=== PATIENT | male | born 1980 | race Caucasian/White ===

== ENCOUNTER 2016-08-02 20:55 | Inpatient (IN) | payer MEDICAID ==
[~2016-08-02] VITALS: Ht 170.2 cm; Wt 125.0 kg
[2016-08-02] MEDS ORDERED: hydrALAzine 20 MG INJ IV ONE (23:30)
[2016-08-02 23:52] LABS: ADD SCAN DIFF NO
[2016-08-02 23:54] LABS: BASOPHIL # 0.1 10^3/ul (0.0-0.1); BASOPHILS % 0.7 % (0.0-2.0); EOSINOPHILS # 0.4 10^3/ul (0.0-0.5); EOSINOPHILS % 2.7 % (0.0-7.0); HEMATOCRIT 45.3 % (42.0-52.0); HEMOGLOBIN 15.3 g/dl (14.0-18.0); LYMPHOCYTES # 2.3 10^3/ul (0.8-2.9); MEAN CORPUSCULAR HEMOGLOBIN 28.8 pg (29.0-33.0); MEAN CORPUSCULAR HGB CONC 33.8 g/dl (32.0-37.0); MEAN CORPUSCULAR VOLUME 85.3 fl (82.0-101.0); MEAN PLATELET VOLUME 10.3 fl (7.4-10.4); MONOCYTE # 0.9 10^3/ul (0.3-0.9); MONOCYTES % 6.4 % (0.0-11.0); NEUTROPHILS % 72.6 % (39.0-77.0); PLATELET COUNT 351 10^3/UL (140-415); RED BLOOD COUNT 5.31 10^6/ul (4.70-6.10); RED CELL DISTRIBUTION WIDTH 12.5 % (11.5-14.5); WHITE BLOOD COUNT 13.8 10^3/ul (4.8-10.8)
--- NOTE | 2016-08-02 23:59 | RADRPT ---
PROCEDURE: XR Chest. CLINICAL INDICATION: Chest pain. TECHNIQUE: Single frontal view of the chest. COMPARISON: Chest dated 10/03/2013. FINDINGS: Cardiac silhouette and pulmonary vascular markings are accentuated by portable technique and patient body habitus. The cardiomediastinal silhouette is within normal limits. The lungs are clear. No signs of pleural f luid or pneumothorax are seen. The osseous structures and soft tissues are unremarkable. IMPRESSION: No evidence for active cardiopulmonary disease. RPTAT: [facility] Physician Marika Date Time Electronically viewed and signed by Physician Marika on 08/02/2016 23:59 RS/
[2016-08-03] VITALS (15 sets, daily range): BP systolic 143–192; BP diastolic 80–110; PULSE 76–108; RESP 19–20; TEMP 98.2; Ht 170.2 cm; Wt 125.0 kg
[2016-08-03 00:09] LABS: INR 0.91; PROTIME 12.2 Sec (12.2-14.2)
[2016-08-03 00:10] LABS: PARTIAL THROMBOPLASTIN TIME 27.2 Sec (25.0-35.0)
[2016-08-03 00:18] LABS: ALANINE AMINOTRANSFERASE 129 IU/L (13-69); ALBUMIN 4.9 g/dl (3.3-4.9); ALBUMIN/GLOBULIN RATIO 1.36; ALKALINE PHOSPHATASE 53 IU/L (42-121); ANION GAP 14 (8-16); ASPARTATE AMINO TRANSFERASE 71 IU/L (15-46); BILIRUBIN,INDIRECT 0.3 mg/dl (0-1.1); BILIRUBIN,TOTAL 0.3 mg/dl (0.2-1.3); BLOOD UREA NITROGEN 13 mg/dl (7-20); CALCIUM 10.1 mg/dl (8.4-10.2); CARBON DIOXIDE 28 mmol/L (21-31); CHLORIDE 103 mmol/L (97-110); CREATININE 1.07 mg/dl (0.61-1.24); GLUCOSE 105 mg/dl (70-220); POTASSIUM 3.2 mmol/L (3.5-5.1); SODIUM 142 mmol/L (135-144); TOTAL PROTEIN 8.5 g/dl (6.1-8.1)
[2016-08-03 00:30] LABS: B-TYPE NATRIURETIC PEPTIDE 117 PG/ML (0-125)
[2016-08-03 00:39] LABS: TROPONIN-I < 0.012 ng/ml (0.00-0.12)
[2016-08-03] MEDS ORDERED: NITROGLYCERIN 2% 1 GM OINT PKT TD ONE (01:00)
[2016-08-03 03:19] LABS: ADD UMIC YES; UR ASCORBIC ACID NEGATIVE (NEGATIVE); UR BILIRUBIN (Dip) NEGATIVE (NEGATIVE); UR BLOOD (Dip) NEGATIVE (NEGATIVE); UR CLARITY CLEAR (CLEAR); UR COLOR STRAW (YELLOW); UR GLUCOSE (Dip) NEGATIVE (NEGATIVE); UR KETONES (Dip) NEGATIVE (NEGATIVE); UR LEUKOCYTE ESTERASE (Dip) NEGATIVE Leu/ul (NEGATIVE); UR NITRITE (Dip) NEGATIVE (NEGATIVE); UR RBC 1 /HPF (0-5); UR SPECIFIC GRAVITY (Dip) 1.009 (1.003-1.030); UR TOTAL PROTEIN (Dip) 1+ mg/dl (NEGATIVE); UR UROBILINOGEN (Dip) NEGATIVE (NEGATIVE)
[2016-08-03] MEDS ORDERED: SOD CHLORIDE 0.9% 1,000 ML IV SCH (03:57)
[2016-08-03] MEDS ORDERED: ONDANSETRON 4 MG INJ IV PRN (04:00)
[2016-08-03] MEDS ORDERED: NACL 0.9% 3 ML SYG IV SCH (04:00)
[2016-08-03] MEDS ORDERED: BISACODYL (EC) 5 MG TAB PO PRN (04:00)
[2016-08-03] MEDS ORDERED: AZITHROMYCIN 250 MG TAB PO ONE (04:00)
[2016-08-03] MEDS ORDERED: DOCUSATE SODIUM 100 MG CAP PO PRN (04:00)
[2016-08-03] MEDS ORDERED: ACETAMINOPHEN 325 MG TAB PO PRN (04:00)
[2016-08-03] MEDS ORDERED: LORAZEPAM 1 MG TAB PO PRN (04:30)
[2016-08-03] MEDS ORDERED: PANTOPRAZOLE 40 MG INJ IV SCH (06:00)
--- NOTE | 2016-08-03 07:15 | HP ---
Date/Time of Note Date/Time of Note DATE: 08/03/16 TIME: 07:00 Assessment/Plan VTE Prophylaxis VTE Prophylaxis Intervention: LMWH Lines/Catheters IV [facility] Peripheral IV Assessment/Plan Chief Complaint/Hosp Course This is a 35-year-old male being admitted to telemetry floor for: #1 chest pain: Rule out ACS patient has risk factor for hypertension likely uncontrolled as his blood pressure on admission was initially in the 200s. At the current time will trend troponins 3 first set was negative. Will order an echocardiogram. Will consult cardiology. Keep the patient n.p.o. EKG: #2 leukocytosis: Patient presented with a white blood cell count of 13 patient also had a low-grade temperature of approximately 99.9. Patient also has had symptoms of coughing. At the current time we will treat the patient for possible upper respiratory infection versus pneumonia. Will start the patient on azithromycin. Continue to monitor for fevers. #3 Uncontrolled hypertension: Patient is currently not on any outpatient blood pressure medications will start patient currently on Norvasc 10 mg daily. Continue to monitor and add additional medications as indicated. #4 history of alcohol abuse: Patient states that he drinks 6 beers daily. Will put patient on banana bag. Will order vitamin B12 and folate. LFTs are elevated will order right upper quadrant ultrasound. #5DVT and GI prophylaxis: Lovenox, Protonix Further treatment strategy of improvement as per the clinical course Problems: HPI/ROS Admit Date/Time Admit Date/Time Aug 03, 2016 at 01:09 Hx of Present Illness Chief complaint: Chest pressure 3 days This is a 35-year-old male who presents to the ER with chest pressure 3 days. Patient states that he has had chest pressure 3 days on the left side which is coming and going. He states it feels tight. Nonradiating. It gets relieved on its own. It can occur on activity and at rest. Patient also states that he has nausea. He also states that he has been having a cough during this time as well and he states that he has been around sick contacts such as his and his child who both were sick with upper respiratory infection requiring antibiotics. Denies any diaphoresis or lower extremity edema. Allergies: NKDA Medications: See SAVITA ROS Const: As per HPI Eyes : No pain discharge or redness or change in visual acuity ENT: No pain, sore throat, congestion, congestion, dysphagia or discharge Respiratory: As per HPI Cardiovascular: As per H GI : no change in appetite, abdominal pain, nausea, vomiting, diarrhea, constipation, or change in the color his stool Genitourinary: No dysuria, hematuria, flank pain , discharge or CVA tenderness Musculoskeletal: Per HPI Skin: No rash, bruising or hives Neuro: No headache, dizziness, syncope, seizure, focal weakness Endocrine: No polyuria, polydipsia, temperature intolerance Psych: No hallucination, depression, anxiety or suicidal ideation PMH/Family/Social Past Medical History Hypertension Past Surgical History Past Surgical Hx: appendectomy Family History Significant Family History: no pertinent family hx Social History Alcohol Use: heavy (6 beers a day) Smoking Status: Never smoker Drug Use: none Exam/Review of Systems Vital Signs Vitals Vital Signs Date Time Temp Pulse Resp B/P Pulse Ox O2 Delivery O2 Flow Rate FiO2 08/03/16 04:24 98.8 95 19 174/95 98 08/03/16 02:12 Room Air Exam Exam General: Patient is a well-developed male who is laying in bed in no acute distress HEENT: Atraumatic, normocephalic. The pupils are equal, round and reactive. Extraocular motor are intact Neck: Supple with full range of motion. No rigidity or meningismus Chest: Nontender Lungs: Coarse breath sounds, no wheezing no rales Heart: Normal S1-S2, Regular rhythm and rate. No murmur, S3, or S4 Abdomen: Soft , nontender, nondistended , bowel sounds are present. No guarding no rebound tenderness , No masses or organomegaly. No costovertebral temporal angle mass Extremities: Normal to inspection, no edema no cyanosis Neurologic: Normal mental status, speech normal, cranial nerves II through XII are intact, motor and sensory are intact, no focal weakness Labs Result Diagram: 08/02/16 2340 08/02/16 2340 Medications Medications Current Medications Sodium Chloride (NS) 1,000 ml @ 80 mls/hr [id number] IV Last administered on 08/03t 04:30; Admin Dose 80 MLS/HR; Start 08/03/16 at 03:57 Ondansetron HCl (Zofran Inj) 4 mg Q6H PRN IV NAUSEA AND/OR VOMITING; Start at 04:00 Acetaminophen (Tylenol Tab) 650 mg Q6H PRN PO PAIN LEVEL 1-3 OR FEVER Last administered on 08/03/16 04:29; Admin Dose 650 MG; Start 08/03/16 at 04:00 Docusate Sodium (Colace) 100 mg Q12H PRN PO CONSTIPATION; Start 08/03/16 at 04: 00 Bisacodyl (Dulcolax) 5 mg DAILY PRN PO CONSTIPATION; Start 08/03/16 at 04:00 Pantoprazole (Protonix Iv) 40 mg DAILY@06 IV Last administered on 08/03/16 05: 56; Admin Dose 40 MG; Start 08/03/16 at 06:00 Enoxaparin Sodium (Lovenox) 40 mg DAILY SC ; Start 08/03/16 at 09:00 Azithromycin 250 mg 250 mg DAILY PO ; Start 08/04/16 at 09:00; Stop 08/08/16 at 08:59 Multivitamins/ Thiamine HCl/ Folic Acid/Sodium Chloride (Mvi Adult/ Vitamin B1/ Folic Acid/NS) 1,011.2 ml @ 125 mls/ hr DAILY@09 IVPB ; Start 08/03/16 at 09:00 Lorazepam (Ativan) 1 mg Q6H PRN PO ANXIETY; Start 08/03/16 at 04:30 PAM CORONEL Aug 03, 2016 07:10
--- NOTE | 2016-08-03 08:42 | RADRPT ---
PROCEDURE: US Abdomen (right upper quadrant). CLINICAL INDICATION: Elevated liver function tests. Alcohol abuse. TECHNIQUE: Multiple real-time longitudinal and transverse images of the right upper quadrant of th e abdomen were acquired utilizing a curved array transducer. Images were reviewed on a high-resoluti on PACS workstation. COMPARISON: None FINDINGS: The liver is enlarged at 23.1 cm with a coarsened echotexture consistent with steatosis. without foc al mass or intrahepatic biliary dilatation. There is normal hepatopedal flow within the main portal vein. The gallbladder is well displayed without filling defects or wall thickening. The common bi le duct measures 4.0 mm in maximal dimension. The visualized portions of the pancreas are unremarka ble with obscuration of the tail of the pancreas. No free fluid is identified. The right kidney measures 12.3 cm in length. There is normal echogenicity within the right kidney. There is no perinephric fluid collection. No hydronephrosis, mass, or calculus is seen. IMPRESSION: 1. Hepatomegaly with a coarsened echotexture throughout suggesting diffuse steatosis. 2. At the gallbladder and biliary tree appear unremarkable. RPTAT: [facility] Physician Aren Date Time Electronically viewed and signed by Physician Aren on 08/03/2016 08:41 ITZ/
[2016-08-03 08:50] LABS: TROPONIN-I 0.015 ng/ml (0.00-0.12)
[2016-08-03 09:00] LABS: CK-MB 0.88 ng/ml (0.0-2.4)
[2016-08-03] MEDS ORDERED: MULTIVITAMINS 10 ML, THIAMINE 100 MG, FOLIC ACID 1 MG in SOD CHLORIDE 0.9% 1,000 ML IVPB SCH (09:00)
[2016-08-03] MEDS: ENOXAPARIN 40 MG/0.4 ML SYG SC SCH (09:55)
[2016-08-03] MEDS: AMLODIPINE 10 MG TAB PO SCH (10:31)
[2016-08-03 10:41] LABS: TROPONIN-I 0.014 ng/ml (0.00-0.12)
[2016-08-03 10:44] LABS: CK-MB 0.75 ng/ml (0.0-2.4)
[2016-08-03] MEDS ORDERED: POTASSIUM CHLORIDE (SR) 20 MEQ TAB PO STA (10:53)
--- NOTE | 2016-08-03 10:57 | PN ---
Date/Time of Note Date/Time of Note DATE: 08/03/16 TIME: 10:53 Assessment/Plan VTE Prophylaxis VTE Prophylaxis Intervention: SCD's Lines/Catheters IV Catheter Type (from Nrsg): Peripheral IV Assessment/Plan Assessment/Plan 35 yo M with HTN, obesity admitted for chest pain in setting of severely elevated BP. Suspect htn urgency 2/2 uncontrolled HTN #HTN urgency: start scheduled ccb, add dieretic if BP not controlled needs PCP f/u had long language line facilitated conversation with pt this AM abt importance of adherence to BP med regimen and potential for deleterious consequences of uncontrolled BP #chest pain: suspect 2/2 above check TTE, complete ACS r/o #transaminitis: liver US with CROOK check HepC Ab RD consult check a1c given obesity prophx: LMWH dischange pending improved BP control Subjective 24 Hr Interval Summary Free Text/Dictation Language line used to facilitate communication Pt feels ok this morning, no more chest pain. Of note, pt states he was on high blood pressure medicine previously but hasn't taken anything for 6 years because he felt fine. Exam/Review of Systems Vital Signs Vitals Vital Signs Date Time Temp Pulse Resp B/P Pulse Ox O2 Delivery O2 Flow Rate FiO2 08/03/16 08:12 89 08/03/16 08:00 98.7 20 143/82 98 08/03/16 02:12 Room Air Exam +acanthosis nigrans on post neck nad no mrg lungs clear abd soft, obese no rashes Results Result Diagram: 08/02/16 2340 08/02/16 2340 Results 24 hrs Laboratory Tests Test 08/02/16 23:40 08/03/16 02:30 08/03/16 07:15 08/03/16 09:42 White Blood Count 13.8 H Red Blood Count 5.31 Hemoglobin 15.3 Hematocrit 45.3 Mean Corpuscular Volume 85.3 Mean Corpuscular Hemoglobin 28.8 L Mean Corpuscular Hemoglobin Concent 33.8 Red Cell Distribution Width 12.5 Platelet Count 351 Mean Platelet Volume 10.3 Neutrophils % 72.6 Lymphocytes % 17.0 Monocytes % 6.4 Eosinophils % 2.7 Basophils % 0.7 Nucleated Red Blood Cells % 0.0 Neutrophils # 10.0 H Lymphocytes # 2.3 Monocytes # 0.9 Eosinophils # 0.4 Basophils # 0.1 Nucleated Red Blood Cells # 0.0 Prothrombin Time 12.2 Prothrombin Time Ratio 1.0 INR International Normalized Ratio 0.91 Activated Partial Thromboplast Time 27.2 Sodium Level 142 Potassium Level 3.2 L Chloride Level 103 Carbon Dioxide Level 28 Anion Gap 14 Blood Urea Nitrogen 13 Creatinine 1.07 Glucose Level 105 Calcium Level 10.1 Total Bilirubin 0.3 Direct Bilirubin 0.00 Indirect Bilirubin 0.3 Aspartate Amino Transf (AST/SGOT) 71 H Alanine Aminotransferase (ALT/SGPT) 129 H Alkaline Phosphatase 53 Troponin I < 0.012 0.015 0.014 B-Type Natriuretic Peptide 117 Total Protein 8.5 H Albumin 4.9 Globulin 3.60 H Albumin/Globulin Ratio 1.36 Urine Color STRAW Urine Clarity CLEAR Urine pH 7.0 Urine Specific [place] 1.009 Urine Ketones NEGATIVE Urine Nitrite NEGATIVE Urine Bilirubin NEGATIVE Urine Urobilinogen NEGATIVE Urine Leukocyte Esterase NEGATIVE Urine Microscopic RBC 1 Urine Microscopic WBC 0 Urine Hemoglobin NEGATIVE Urine Glucose NEGATIVE Urine Total Protein 1+ H Creatine Kinase 139 130 Creatine Kinase Index 0.6 0.6 Creatinine Kinase MB (Mass) 0.88 0.75 Medications Medications Current Medications Ondansetron HCl (Zofran Inj) 4 mg Q6H PRN IV NAUSEA AND/OR VOMITING; Start at 04:00 Acetaminophen (Tylenol Tab) 650 mg Q6H PRN PO PAIN LEVEL 1-3 OR FEVER Last administered on 08/03/16 04:29; Admin Dose 650 MG; Start 08/03/16 at 04:00 Docusate Sodium (Colace) 100 mg Q12H PRN PO CONSTIPATION; Start 08/03/16 at 04: 00 Bisacodyl (Dulcolax) 5 mg DAILY PRN PO CONSTIPATION; Start 08/03/16 at 04:00 Enoxaparin Sodium (Lovenox) 40 mg DAILY SC Last administered on 08/03/16 09:55 ; Admin Dose 40 MG; Start 08/03/16 at 09:00 Lorazepam (Ativan) 1 mg Q6H PRN PO ANXIETY; Start 08/03/16 at 04:30 Amlodipine Besylate (Norvasc) 10 mg DAILY PO Last administered on 08/03/16 10: 31; Admin Dose 10 MG; Start 08/03/16 at 09:00 Procedures Procedures liver US with fatty infiltration SUELLEN JUAREZ MD Aug 03, 2016 10:57
[2016-08-03 11:17] LABS: CHOL/HDL RATIO 4.7 RATIO
[2016-08-03 11:33] LABS: FOLATE 12.4 ng/ml (2.8-20.0)
[2016-08-03] MEDS ORDERED: HYDROCHLOROTHIAZIDE 25 MG TAB PO ONE (15:00)
--- NOTE | 2016-08-03 16:54 | CONS ---
Date/Time of Note Date/Time of Note DATE: 08/03/16 TIME: 16:47 Assessment/Plan Assessment/Plan Chief Complaint/Hosp Course IMP: 1.Chest pain-assesss for ACS 2.HYpertension-uncontrolled hypertensive urgency/emergency 3.HL 4.Increased LFT's Recc: -Tele -complete sima -Continue norvasc/HCTZ and add ACEI to improve -Check echo -Follow LFT's and consider abdominal imaging Problems: Consultation Date/Type/Reason Admit Date/Time Aug 03, 2016 at 01:09 Date of Consultation: Aug 03, 2016 Type of Consultation: cardiology Reason for Consultation chest pain Referring Provider: PAM CORONEL Hx of Present Illness This is a 35-year-old male who presents to the ER with chest pressure 3 days. Patient states that he has had chest pressure 3 days on the left side which is coming and going. He states it feels tight. Nonradiating. It gets relieved on its own. It can occur on activity and at rest. Patient also states that he has nausea. He also states that he has been having a cough during this time as well and he states that he has been around sick contacts such as his and his child who both were sick with upper respiratory infection requiring antibiotics. Denies any diaphoresis or lower extremity edema. Constitutional: no complaints Eyes: no complaints ENT: no complaints Cardiovascular: chest pain Gastrointestinal: no complaints Genitourinary: no complaints Skin: no complaints Neurologic: no complaints Endocrine: no complaints Lymphatic: no complaints Past Medical History Medical History: hypertension Past Surgical History Past Surgical Hx: appendectomy Family History Significant Family History: no pertinent family hx Social History Alcohol Use: none (6 beers a day) Smoking Status: Never smoker Drug Use: none Exam/Review of Systems Vital Signs Vitals Vital Signs Date Time Temp Pulse Resp B/P Pulse Ox O2 Delivery O2 Flow Rate FiO2 08/03/16 16:04 99.7 91 20 192/110 99 08/03/16 02:12 Room Air Exam Constitutional: alert Psych: no complaints Head: normocephalic ENMT: mucosa pink and moist Neck: jvd, supple Respiratory: diminished breath sounds Cardiovascular: regular rate and rhythm Gastrointestinal: non-tender, soft Musculoskeletal: muscle tone (nomal) Extremities: edema (none) Neurological: other (No focal deficits) Results Result Diagram: 08/02/16 2340 08/02/16 2340 Results 24 hrs Laboratory Tests Test 08/02/16 23:40 08/03/16 02:30 08/03/16 07:15 08/03/16 09:42 White Blood Count 13.8 H Red Blood Count 5.31 Hemoglobin 15.3 Hematocrit 45.3 Mean Corpuscular Volume 85.3 Mean Corpuscular Hemoglobin 28.8 L Mean Corpuscular Hemoglobin Concent 33.8 Red Cell Distribution Width 12.5 Platelet Count 351 Mean Platelet Volume 10.3 Neutrophils % 72.6 Lymphocytes % 17.0 Monocytes % 6.4 Eosinophils % 2.7 Basophils % 0.7 Nucleated Red Blood Cells % 0.0 Neutrophils # 10.0 H Lymphocytes # 2.3 Monocytes # 0.9 Eosinophils # 0.4 Basophils # 0.1 Nucleated Red Blood Cells # 0.0 Prothrombin Time 12.2 Prothrombin Time Ratio 1.0 INR International Normalized Ratio 0.91 Activated Partial Thromboplast Time 27.2 Sodium Level 142 Potassium Level 3.2 L Chloride Level 103 Carbon Dioxide Level 28 Anion Gap 14 Blood Urea Nitrogen 13 Creatinine 1.07 Glucose Level 105 Calcium Level 10.1 Total Bilirubin 0.3 Direct Bilirubin 0.00 Indirect Bilirubin 0.3 Aspartate Amino Transf (AST/SGOT) 71 H Alanine Aminotransferase (ALT/SGPT) 129 H Alkaline Phosphatase 53 Troponin I < 0.012 0.015 0.014 B-Type Natriuretic Peptide 117 Total Protein 8.5 H Albumin 4.9 Globulin 3.60 H Albumin/Globulin Ratio 1.36 Urine Color STRAW Urine Clarity CLEAR Urine pH 7.0 Urine Specific [place] 1.009 Urine Ketones NEGATIVE Urine Nitrite NEGATIVE Urine Bilirubin NEGATIVE Urine Urobilinogen NEGATIVE Urine Leukocyte Esterase NEGATIVE Urine Microscopic RBC 1 Urine Microscopic WBC 0 Urine Hemoglobin NEGATIVE Urine Glucose NEGATIVE Urine Total Protein 1+ H Hemoglobin A1c 5.6 Creatine Kinase 139 130 Creatine Kinase Index 0.6 0.6 Creatinine Kinase MB (Mass) 0.88 0.75 Triglycerides Level 187 H Cholesterol Level 212 H LDL Cholesterol, Calculated 130 HDL Cholesterol 45 Cholesterol/HDL Ratio 4.7 Hepatitis C Antibody NEGATIVE Vitamin B12 Level 442 Folate 12.4 Medications Medications Current Medications Ondansetron HCl (Zofran Inj) 4 mg Q6H PRN IV NAUSEA AND/OR VOMITING; Start at 04:00 Acetaminophen (Tylenol Tab) 650 mg Q6H PRN PO PAIN LEVEL 1-3 OR FEVER Last administered on 08/03/16 04:29; Admin Dose 650 MG; Start 08/03/16 at 04:00 Docusate Sodium (Colace) 100 mg Q12H PRN PO CONSTIPATION; Start 08/03/16 at 04: 00 Bisacodyl (Dulcolax) 5 mg DAILY PRN PO CONSTIPATION; Start 08/03/16 at 04:00 Enoxaparin Sodium (Lovenox) 40 mg DAILY SC Last administered on 08/03/16 09:55 ; Admin Dose 40 MG; Start 08/03/16 at 09:00 Amlodipine Besylate (Norvasc) 10 mg DAILY PO Last administered on 08/03/16 10: 31; Admin Dose 10 MG; Start 08/03/16 at 09:00 Hydrochlorothiazide (Hydrochlorothiazide) 25 mg DAILY PO ; Start 08/04/16 at 09: 00 ZIA ANTUNEZ Aug 03, 2016 16:53
[2016-08-03] MEDS ORDERED: hydrALAzine 20 MG INJ IV PRN (17:00)
--- NOTE | 2016-08-03 17:42 | RADRPT ---
Echocardiogram Report Patient Name: POLO HUGHES Gender: Male Date: 1980 Study Date: 03-Aug-2016 Distributor Advertising Material: [employer] [facility] Location: [id number] Ref. Physician: PAM CORONEL Quality: Good Procedures: Transthoracic echocardiogram with complete 2D, M-Mode, and doppler examination. Indications: Chest Pain. 2D/M Mode Doppler Measurement Value Normal Ranges Measurement Value Normal Ranges LVIDd 2D 4.8 3.5 - 5.6 cm AV Peak Ra 1.5 m/sec LVIDs 2D 3.0 2.1 - 4.1 cm AV Peak PG 9.0 mmHg FS 2D 38.4 % LVOT Peak Ra 1.0 m/sec LVPWd 2D 1.4 0.6 - 1.1 cm LVOT Peak PG 4.0 mmHg IVSd 2D 1.3 0.6 - 1.1 cm MV E Peak Ar 0.6 m/sec IVS/LVPW 2D 0.9 MV A Peak Ra 0.9 m/sec AoR Diam 2D 3.1 2.0 - 3.7 cm MV E/A 0.7 LA/Ao 2D 1 0 - 1 MV Decel Time 197 msec EDV 2D 113.0 cm3 MV E/A 0.7 ESV 2D 26.5 cm3 LA Dimen 2D 3.7 2.3 - 4.0 cm Findings Left Ventricle: Normal left ventricular systolic function. Normal left ventricular cavity size. Mild concentric left ventricular hypertrophy. Ejection fraction is visually estimated at 60 %. Tissue Doppler/Mitral Doppler indices are consistent with impaired relaxation (Stage I diastolic dysfunction). Right Ventricle: Normal right ventricular size. Normal right ventricular systolic function. Left Atrium: The left atrium is normal in size. Right Atrium: The right atrium is normal in size. Mitral Valve: Normal appearance and function of the mitral valve with trace physiologic regurgitation. Aortic Valve: Normal appearance of the aortic valve. No significant aortic stenosis or insufficiency. Tricuspid Valve: Normal appearance of the tricuspid valve. Unable to obtain RVSP due to minimal presence of tricuspid regurgitation. Pulmonic Valve: Normal pulmonic valve appearance. Pericardium: Normal pericardium with no significant pericardial effusion. Aorta: Normal aortic root. IVC: Normal size and normal respiratory collapse consistent with normal right atrial pressure. Conclusions 1.Normal left ventricular systolic function. Normal left ventricular cavity size. Mild concentric left ventricular hypertrophy. Ejection fraction is visually estimated at 60 %. Tissue Doppler/Mitral Doppler indices are consistent with impaired relaxation (Stage I diastolic dysfunction). 2.Normal appearance and function of the mitral valve with trace physiologic regurgitation. 3.Normal appearance of the tricuspid valve. Unable to obtain RVSP due to minimal presence of tricuspid regurgitation. Electronically Signed By: Dominic Wolf 03-Aug-2016 17:41:39 -0700 Patient Name: POLO HUGHES Study Date: 03-Aug-2016 [id number]
[2016-08-03] MEDS: BENAZEPRIL 20 MG TAB PO SCH (21:04)
[2016-08-04] VITALS (14 sets, daily range): BP systolic 152–166; BP diastolic 83–103; PULSE 72–84; RESP 16–21
[2016-08-04 08:02] LABS: ADD SCAN DIFF NO
[2016-08-04 08:14] LABS: BASOPHIL # 0.1 10^3/ul (0.0-0.1); BASOPHILS % 0.6 % (0.0-2.0); EOSINOPHILS # 0.5 10^3/ul (0.0-0.5); EOSINOPHILS % 3.8 % (0.0-7.0); HEMATOCRIT 47.6 % (42.0-52.0); HEMOGLOBIN 15.9 g/dl (14.0-18.0); LYMPHOCYTES # 2.3 10^3/ul (0.8-2.9); MEAN CORPUSCULAR HEMOGLOBIN 29.1 pg (29.0-33.0); MEAN CORPUSCULAR HGB CONC 33.4 g/dl (32.0-37.0); MEAN PLATELET VOLUME 10.4 fl (7.4-10.4); NEUTROPHIL # 8.6 10^3/ul (1.6-7.5); NEUTROPHILS % 69.1 % (39.0-77.0); PLATELET COUNT 352 10^3/UL (140-415); RED BLOOD COUNT 5.47 10^6/ul (4.70-6.10); RED CELL DISTRIBUTION WIDTH 12.9 % (11.5-14.5); WHITE BLOOD COUNT 12.5 10^3/ul (4.8-10.8)
[2016-08-04] MEDS ORDERED: AZITHROMYCIN 250 MG TAB PO SCH (09:00)
[2016-08-04 09:01] LABS: ALBUMIN/GLOBULIN RATIO 1.38; CALCIUM 10.1 mg/dl (8.4-10.2); CREATININE 1.25 mg/dl (0.61-1.24); MAGNESIUM 2.4 mg/dl (1.7-2.5); POTASSIUM 3.4 mmol/L (3.5-5.1); TOTAL PROTEIN 8.6 g/dl (6.1-8.1)
[2016-08-04] MEDS ORDERED: POTASSIUM CHLORIDE (SR) 20 MEQ TAB PO STA (09:09)
[2016-08-04] MEDS: BENAZEPRIL 20 MG TAB PO SCH ×2 (09:14→20:40)
[2016-08-04] MEDS: AMLODIPINE 10 MG TAB PO SCH (09:15)
[2016-08-04] MEDS: HYDROCHLOROTHIAZIDE 25 MG TAB PO SCH (09:15)
[2016-08-04] MEDS: ENOXAPARIN 40 MG/0.4 ML SYG SC SCH (09:19)
--- NOTE | 2016-08-04 09:19 | PN ---
Date/Time of Note Date/Time of Note DATE: 08/04/16 TIME: 09:18 Assessment/Plan VTE Prophylaxis VTE Prophylaxis Intervention: LMWH Lines/Catheters IV Catheter Type (from Nrsg): Saline Lock Assessment/Plan Assessment/Plan 35 yo M with HTN, obesity admitted for chest pain in setting of severely elevated BP. Suspect htn urgency 2/2 uncontrolled HTN #HTN urgency: start scheduled ccb, added hctz yesterday, acei added in early evening by director of program management needs PCP f/u had long language line facilitated conversation with pt this AM abt importance of adherence to BP med regimen and potential for deleterious consequences of uncontrolled BP on 08.03 #chest pain: suspect 2/2 above sp TTE cardiology on consult #transaminitis: liver US with CROOK check HepC Ab sp RD eval #HL: start statin a1c <5.7 prophx: LMWH dispo: likely dc home tomorrow assuming improved BP control and f/u cardiology eval Subjective 24 Hr Interval Summary Free Text/Dictation Pt feeling well this AM. No more chest pain. BPs improving. Exam/Review of Systems Vital Signs Vitals Vital Signs Date Time Temp Pulse Resp B/P Pulse Ox O2 Delivery O2 Flow Rate FiO2 08/04/16 08:00 83 08/04/16 07:56 98.1 18 162/83 97 08/03/16 02:12 Room Air Intake and Output 08/03/16 08/03/16 08/04/16 15:00 23:00 07:00 Intake Total 1400 ml 800 ml Output Total 1700 ml 1400 ml Balance -300 ml -600 ml Exam nad no mrg lungs clear obese no rashes TTE results reviewed Results Result Diagram: 08/04/16 0642 08/04/16 0642 Results 24 hrs Laboratory Tests Test 08/03/16 09:42 08/04/16 06:42 Creatine Kinase 130 Creatine Kinase Index 0.6 Creatinine Kinase MB (Mass) 0.75 Troponin I 0.014 Vitamin B12 Level 442 Folate 12.4 White Blood Count 12.5 H Red Blood Count 5.47 Hemoglobin 15.9 Hematocrit 47.6 Mean Corpuscular Volume 87.0 Mean Corpuscular Hemoglobin 29.1 Mean Corpuscular Hemoglobin Concent 33.4 Red Cell Distribution Width 12.9 Platelet Count 352 Mean Platelet Volume 10.4 Neutrophils % 69.1 Lymphocytes % 18.0 Monocytes % 8.0 Eosinophils % 3.8 Basophils % 0.6 Nucleated Red Blood Cells % 0.0 Neutrophils # 8.6 H Lymphocytes # 2.3 Monocytes # 1.0 H Eosinophils # 0.5 Basophils # 0.1 Nucleated Red Blood Cells # 0.0 Sodium Level 140 Potassium Level 3.4 L Chloride Level 100 Carbon Dioxide Level 29 Anion Gap 14 Blood Urea Nitrogen 19 Creatinine 1.25 H Glucose Level 97 Calcium Level 10.1 Magnesium Level 2.4 Total Bilirubin 1.0 Direct Bilirubin 0.00 Indirect Bilirubin 1.0 Aspartate Amino Transf (AST/SGOT) 87 H Alanine Aminotransferase (ALT/SGPT) 124 H Alkaline Phosphatase 49 Total Protein 8.6 H Albumin 5.0 H Globulin 3.60 H Albumin/Globulin Ratio 1.38 Medications Medications Current Medications Ondansetron HCl (Zofran Inj) 4 mg Q6H PRN IV NAUSEA AND/OR VOMITING; Start at 04:00 Acetaminophen (Tylenol Tab) 650 mg Q6H PRN PO PAIN LEVEL 1-3 OR FEVER Last administered on 08/03/16 04:29; Admin Dose 650 MG; Start 08/03/16 at 04:00 Docusate Sodium (Colace) 100 mg Q12H PRN PO CONSTIPATION; Start 08/03/16 at 04: 00 Bisacodyl (Dulcolax) 5 mg DAILY PRN PO CONSTIPATION; Start 08/03/16 at 04:00 Enoxaparin Sodium (Lovenox) 40 mg DAILY SC Last administered on 08/03/16 09:55 ; Admin Dose 40 MG; Start 08/03/16 at 09:00 Amlodipine Besylate (Norvasc) 10 mg DAILY PO Last administered on 08/03/16 10: 31; Admin Dose 10 MG; Start 08/03/16 at 09:00 Hydrochlorothiazide (Hydrochlorothiazide) 25 mg DAILY PO ; Start 08/04/16 at 09: 00 Benazepril HCl (Lotensin) 20 mg BID PO Last administered on 08/03/16 21:04; Admin Dose 20 MG; Start 08/03/16 at 21:00 Hydralazine HCl (Apresoline) 10 mg Q4H PRN IV sbp ABOVE 170 Last administered on 08/03/16 18:33; Admin Dose 10 MG; Start 08/03/16 at 17:00 Procedures Procedures a1c 5.6 lipids elevated SUELLEN JUAREZ MD Aug 04, 2016 09:19
[2016-08-04] MEDS ORDERED: CALCIUM CARBONATE 500 MG CHEW TAB PO PRN (09:30)
--- NOTE | 2016-08-04 17:49 | CONS ---
Date/Time of Note Date/Time of Note DATE: 08/04/16 TIME: 17:46 Assessment/Plan Assessment/Plan Chief Complaint/Hosp Course IMP: 1.Chest pain-assesss for ACS-neg trop x 3/NL EF by echo 60%/DD 2.Hypertension-uncontrolled hypertensive urgency/emergency 3.HL 4.Increased LFT's Recc: -Tele -Continue norvasc/HCTZ and increase ACEI to improve -Follow LFT's and consider abdominal imaging Problems: Consultation Date/Type/Reason Admit Date/Time Aug 03, 2016 at 14:49 Initial Consult Date 08/03/16 Type of Consultation: cardiology Reason for Consultation HTN Referring Provider: PAM CORONEL Exam/Review of Systems Vital Signs Vitals Vital Signs Date Time Temp Pulse Resp B/P Pulse Ox O2 Delivery O2 Flow Rate FiO2 08/04/16 16:00 84 08/04/16 11:36 97.8 16 161/102 97 08/03/16 02:12 Room Air Intake and Output 08/03/16 08/03/16 08/04/16 15:00 23:00 07:00 Intake Total 1400 ml 800 ml Output Total 1700 ml 1400 ml Balance -300 ml -600 ml Exam Review of Systems: CONSTITUTIONAL: No fevers, chills. PULMONARY: No sob CARDIOVASCULAR: No chest pain/palpitations GASTROINTESTINAL: No nausea/vomiting. GENITOURINARY: No hematuria/dysuria. MUSCULOSKELETAL: No myagias/arthalgias. PSYCHIATRIC: The patient denies depression. NEUROLOGIC: No weakness Constitutional: alert Psych: no complaints Head: normocephalic ENMT: mucosa pink and moist Neck: jvd (8 cm water), supple Respiratory: clear to auscultation Cardiovascular: regular rate and rhythm Gastrointestinal: non-tender, soft Musculoskeletal: muscle tone (normal) Extremities: other (none) Neurological: other (No focal deficits) Results Result Diagram: 08/04/16 0642 08/04/16 0642 Results 24 hrs Laboratory Tests Test 08/04/16 06:42 White Blood Count 12.5 H Red Blood Count 5.47 Hemoglobin 15.9 Hematocrit 47.6 Mean Corpuscular Volume 87.0 Mean Corpuscular Hemoglobin 29.1 Mean Corpuscular Hemoglobin Concent 33.4 Red Cell Distribution Width 12.9 Platelet Count 352 Mean Platelet Volume 10.4 Neutrophils % 69.1 Lymphocytes % 18.0 Monocytes % 8.0 Eosinophils % 3.8 Basophils % 0.6 Nucleated Red Blood Cells % 0.0 Neutrophils # 8.6 H Lymphocytes # 2.3 Monocytes # 1.0 H Eosinophils # 0.5 Basophils # 0.1 Nucleated Red Blood Cells # 0.0 Sodium Level 140 Potassium Level 3.4 L Chloride Level 100 Carbon Dioxide Level 29 Anion Gap 14 Blood Urea Nitrogen 19 Creatinine 1.25 H Glucose Level 97 Calcium Level 10.1 Magnesium Level 2.4 Total Bilirubin 1.0 Direct Bilirubin 0.00 Indirect Bilirubin 1.0 Aspartate Amino Transf (AST/SGOT) 87 H Alanine Aminotransferase (ALT/SGPT) 124 H Alkaline Phosphatase 49 Troponin I < 0.012 Total Protein 8.6 H Albumin 5.0 H Globulin 3.60 H Albumin/Globulin Ratio 1.38 Medications Medications Current Medications Ondansetron HCl (Zofran Inj) 4 mg Q6H PRN IV NAUSEA AND/OR VOMITING; Start at 04:00 Acetaminophen (Tylenol Tab) 650 mg Q6H PRN PO PAIN LEVEL 1-3 OR FEVER Last administered on 08/03/16 04:29; Admin Dose 650 MG; Start 08/03/16 at 04:00 Docusate Sodium (Colace) 100 mg Q12H PRN PO CONSTIPATION; Start 08/03/16 at 04: 00 Bisacodyl (Dulcolax) 5 mg DAILY PRN PO CONSTIPATION; Start 08/03/16 at 04:00 Enoxaparin Sodium (Lovenox) 40 mg DAILY SC Last administered on 08/04/16 09:19 ; Admin Dose 40 MG; Start 08/03/16 at 09:00 Amlodipine Besylate (Norvasc) 10 mg DAILY PO Last administered on 08/04/16 09: 15; Admin Dose 10 MG; Start 08/03/16 at 09:00 Hydrochlorothiazide (Hydrochlorothiazide) 25 mg DAILY PO Last administered on 09:15; Admin Dose 25 MG; Start 08/04/16 at 09:00 Benazepril HCl (Lotensin) 20 mg BID PO Last administered on 08/04/16 09:14; Admin Dose 20 MG; Start 08/03/16 at 21:00 Hydralazine HCl (Apresoline) 10 mg Q4H PRN IV sbp ABOVE 170 Last administered on 08/03/16t 18:33; Admin Dose 10 MG; Start 08/03/16 at 17:00 Atorvastatin Calcium (Lipitor) 10 mg HS PO ; Start 08/04/16 at 21:00 Calcium Carbonate (Tums) 500 mg QID PRN PO NOTE; Start 08/04/16 at 09:30 ZIA ANTUNEZ Aug 04, 2016 17:49
[2016-08-04] MEDS ORDERED: ATORVASTATIN 10 MG TAB PO SCH (21:00)
[2016-08-05 00:16] VITALS: PULSE 81
[2016-08-05 00:17] VITALS: PULSE 81
[2016-08-05 03:49] VITALS: BP 133/90; RESP 20
[2016-08-05 04:15] VITALS: PULSE 67
[2016-08-05 08:00] VITALS: BP 168/93; RESP 20
[2016-08-05 08:09] LABS: CALCIUM 9.9 mg/dl (8.4-10.2); CREATININE 1.35 mg/dl (0.61-1.24); POTASSIUM 3.9 mmol/L (3.5-5.1)
[2016-08-05] MEDS: BENAZEPRIL 20 MG TAB PO SCH (08:40)
[2016-08-05] MEDS: HYDROCHLOROTHIAZIDE 25 MG TAB PO SCH (08:41)
[2016-08-05] MEDS: AMLODIPINE 10 MG TAB PO SCH (08:41)
[2016-08-05] MEDS: ENOXAPARIN 40 MG/0.4 ML SYG SC SCH (08:43)
[2016-08-05 09:10] VITALS: PULSE 76
--- NOTE | 2016-08-05 10:23 | PDOCDIS ---
Discharge Instructions CONDITION Patient Condition: Good HOME CARE INSTRUCTIONS: Special Diet: LOW CHOLESTEROL LOW FAT FOLLOW UP/APPOINTMENTS Follow-up Plan Check your blood pressure 1-2x/day with your new cuff and bring the results to your new doctor As we discussed, please arrange an appointment to see a new primary care doctor within the next 7-10 days for a blood pressure check and blood work If you are unable to see a new primary care doctor within the next 10 days, call Dr Wolf the glove brusher and see him instead. Revise hitchcock presin arterial 1-2x / da con hitchcock nuevo brazalete y traiga los resultados a hitchcock nuevo mdico Janis discutimos, por favor concertar sagar adriana para teddy a un nuevo mdico de atencin primaria dentro de los prximos 7-10 rice para un chequeo de presin sangunea y un anlisis de anil Si no puede teddy a un nuevo mdico de atencin primaria dentro de los prximos 10 rice, llame al Dr. Wolf al cardilogo y verlo en hitchcock lugar. Dr Wolf Office Address [address] [place] [address] Office SUELLEN JUAREZ MD Aug 05, 2016 10:23
[2016-08-05] MEDS ORDERED: BENA20TA48 PO (10:25)
[2016-08-05] MEDS ORDERED: BLOO-62 MC (10:25)
[2016-08-05] MEDS ORDERED: ATOR10TA65 PO (10:25)
[2016-08-05] MEDS ORDERED: AMLO-147 PO (10:25)
[2016-08-05] MEDS ORDERED: HYD25 PO (10:25)
--- NOTE | 2016-08-05 10:29 | DS ---
Date/Time of Note Date/Time of Note DATE: 08/05/16 TIME: 10:27 Discharge Summary Admission/Discharge Info Admit Date/Time Aug 03, 2016 at 14:49 Discharge Date/Time Discharge Diagnosis hypertension, non alcoholic steatohepatitis, hyperlipidemia Patient Condition: Good Consults cardiology Procedures 6.27 TTE Conclusions 1. Normal left ventricular systolic function. Normal left ventricular cavity size. Mild concentric left ventricular hypertrophy. Ejection fraction is visually estimated at 60 %. Tissue Doppler/Mitral Doppler indices are consistent with impaired relaxation (Stage I diastolic dysfunction). 2. Normal appearance and function of the mitral valve with trace physiologic regurgitation. 3. Normal appearance of the tricuspid valve. Unable to obtain RVSP due to minimal presence of tricuspid regurgitation. 6.27 Abd US IMPRESSION: 1. Hepatomegaly with a coarsened echotexture throughout suggesting diffuse steatosis. 2. At the gallbladder and biliary tree appear unremarkable. Hx of Present Illness This is a 35-year-old male who presents to the ER with chest pressure 3 days. Patient states that he has had chest pressure 3 days on the left side which is coming and going. He states it feels tight. Nonradiating. It gets relieved on its own. It can occur on activity and at rest. Patient also states that he has nausea. He also states that he has been having a cough during this time as well and he states that he has been around sick contacts such as his and his child who both were sick with upper respiratory infection requiring antibiotics. Denies any diaphoresis or lower extremity edema. Hospital Course Pt ruled out for ACS overnight with serial troponins. BP improved with progressive addition of antihypertensive agents. TTE with DD. Abd US with [facility]. Pt seen by RD, dietary counseling provided. Statin started for HL. On date of discharge I had a long conversation with patient using the Persian language line. I told pt that he needs to take his BP meds as prescribed and follow up with a new PCP within 10 days for blood work as these new BP meds can be hard on the kidneys and alter people's electrolytes. I had previously discussed risk for stroke with uncontrolled HTN. Pt also issued a BP cuff and advised to check BPs at home 1-2x/day and bring results to new PCP. A copy of this summary is being included in patient's dc paperwork to bring to new PCP. Cr slightly uptrending, suspect artifact from acei. Home Meds Active Scripts Blood Pressure Test Kit (BLOOD PRESSURE KIT) 1 Each Kit, 1 EACH , #1 Prov:SUELLEN JUAREZ MD 08/05/16 Hydrochlorothiazide* (Hydrochlorothiazide*) 25 Mg Tab, 25 MG PO DAILY for 14 Days, #14 TAB Prov:SUELLEN JUAREZ MD 08/05/16 Benazepril Hcl* (Benazepril Hcl*) 20 Mg Tablet, 40 MG PO BID for 14 Days, #28 TAB Prov:SUELLEN JUAREZ MD 08/05/16 Atorvastatin (Atorvastatin) 10 Mg Tablet, 10 MG PO HS for 14 Days, #14 TAB Prov:SUELLEN JUAREZ MD 08/05/16 Amlodipine Besylate* (Amlodipine Besylate*) 10 Mg Tablet, 10 MG PO DAILY for 14 Days, #14 TAB Prov:SUELLEN JUAREZ MD 08/05/16 Follow-up Plan new PCP in 7-10 days 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
== END 2016-08-05 12:00 | disposition home or self-care (01) | DRG 305 ==
LOC: E/R 20:55 → MS4 08-03 01:09 → OBSVTOIN 08-03 14:49
PROVIDERS: ADMIT Family Medicine; ATTEND Family Medicine
DX: I16.0 Hypertensive urgency (principal); K75.81 Nonalcoholic steatohepatitis (NASH); Z68.41 Body mass index [BMI] 40.0-44.9, adult; I16.1 Hypertensive emergency; E78.5 Hyperlipidemia, unspecified; R07.9 Chest pain, unspecified; E66.9 Obesity, unspecified; E66.01 Morbid (severe) obesity due to excess calories; F10.20 Alcohol dependence, uncomplicated; I10 Essential (primary) hypertension
CPT/HCPCS: 71010; 76705; 80048; 80053; 80061; 80076; 81001; 82550; 82553; 82607; 82746; 83036; 83735; 83880; 84484; 85025; 85610; 85730; 86803; 93005; 93306; 99217; C9113; G0378; J0360; J1650; J3411; J7030